=== PATIENT | male | born 1955 | race Caucasian/White ===

== ENCOUNTER 2022-12-08 17:48 | Inpatient (IN) | payer MEDICARE, OTHER ==
[~2022-12-08] VITALS: Ht 177.8 cm; Wt 157.4 kg
[2022-12-08 18:32] LABS: BASOPHILS # (AUTO) 0.1 K/uL (0.0-0.2); EOSINOPHILS # (AUTO) 0.2 K/uL (0.0-0.7); EOSINOPHILS % (AUTO) 2.7 % (0.0-6.0); HEMATOCRIT 49 % (39-51); LYMPHOCYTES # (AUTO) 1.5 K/uL (0.8-4.8); LYMPHOCYTES % (AUTO) 21.7 % (20.0-44.0); MEAN CORPUSCULAR HEMOGLOBIN 30 PG (26.0-33.0); MEAN CORPUSCULAR HGB CONC 33 g/dl (31.0-36.0); MEAN CORPUSCULAR VOLUME 90 fL (80-96); MONOCYTES # (AUTO) 0.7 K/uL (0.1-1.30); MONOCYTES % (AUTO) 10.1 % (2.0-12.0); NEUTROPHILS # (AUTO) 4.6 K/uL (1.8-8.9); NEUTROPHILS % (AUTO) 64.5 % (43.0-81.0); PLATELET COUNT (AUTO) 228 K/uL (150-450); RED BLOOD CELL COUNT(AUTO) 5.38 MIL/uL (4.5-6.0); RED CELL DISTRIBUTION WIDTH 15.5 % (11.5-15.0); WHITE BLOOD COUNT (AUTO) 7.1 K/uL (4.3-11.0)
[2022-12-08 18:40] LABS: CALCIUM, SERUM 8.5 mg/dL (8.5-10.1); CARBON DIOXIDE 27 mmol/L (21-32); CHLORIDE 106 mmol/L (98-107); CREATININE 0.9 mg/dL (0.6-1.3); GLUCOSE 108 mg/dL (74-106); POTASSIUM 4.1 mmol/L (3.5-5.1); SODIUM SERUM 140 mmol/L (136-145); UREA NITROGEN, BLOOD 13 mg/dL (7-18)
[2022-12-08 18:46] LABS: ACETAMINOPHEN < 10 ug/ml (10-30); ALANINE AMINOTRANSFERASE 19 U/L (12-78); ALBUMIN 2.8 g/dL (3.4-5.0); ALCOHOL, BLOOD < 3 mg/dL (0-10); ALKALINE PHOSPHATASE 91 U/L (46-116); ASPARTATE AMINOTRANSFERASE 12 U/L (15-37); BILIRUBIN,DIRECT 0.1 mg/dL (0.0-0.2); BILIRUBIN,TOTAL 0.5 mg/dL (0.2-1.0); TOTAL PROTEIN, SERUM 5.9 g/dL (6.4-8.2)
[2022-12-08 19:12] LABS: SALICYLATE 0.8 mg/dL (2.8-20.0)
[2022-12-08] MEDS ORDERED: ACETAMINOPHEN ES 500 MG TABLET ONE (19:38)
[2022-12-08 19:39] LABS: APPEARANCE,URINE CLOUDY (CLEAR); BILIRUBIN,URINE NEGATIVE (NEGATIVE); BLOOD, URINE TRACE-INTA Ery/uL (NEGATIVE); COLOR,URINE YELLOW (YELLOW); KETONES,URINE NEGATIVE (NEGATIVE); LEUKOCYTE ESTERASE ,URINE 2+ (NEGATIVE); NITRITE, URINE POSITIVE (NEGATIVE); PH,URINE 5.5 (5.0-8.0); PROTEIN,URINE TRACE mg/dl (NEGATIVE); UGLUCOSE NEGATIVE (NEGATIVE); UROBILINOGEN,URINE 0.2 EU/dL (0.2)
[2022-12-08 19:52] LABS: ADD URINE CULTURE YES; BACTERIA,URINE 4+ /HPF (None Seen); RBC,URINE 0-2 /HPF (0-2); WBC,URINE 51-80 /HPF (0-3)
[2022-12-08 19:53] LABS: SQUAMOUS EPITHELIAL CELL,UR 0-2 /HPF (None Seen)
[2022-12-08 19:54] LABS: MUCUS,URINE Few /LPF (None Seen)
[2022-12-08 20:00] LABS: AMPHETAMINE, URINE NEGATIVE (NEGATIVE); BARBITURATE, URINE NEGATIVE (NEGATIVE); BENZODIAZEPINE, URINE NEGATIVE (NEGATIVE); CANNABINOID, URINE NEGATIVE (NEGATIVE); COCCAINE, URINE NEGATIVE (NEGATIVE); OPIATE, URINE NEGATIVE (NEGATIVE); PHENCYCLIDINE SCREEN,URINE NEGATIVE (NEGATIVE)
[2022-12-08] MEDS ORDERED: ACETAMINOPHEN ES 500 MG TABLET PO ONE (20:00)
[2022-12-08] MEDS ORDERED: CEPHALEXIN MONOHYDRATE 500 MG CAPSULE PO ONE ×2 (20:26→20:30)
[2022-12-08] MEDS ORDERED: APIX5TAB PO (20:46)
[2022-12-08] MEDS ORDERED: CHOL100062 PO (20:46)
[2022-12-08] MEDS ORDERED: QUET25TA PO (20:46)
[2022-12-08] MEDS ORDERED: OXYC-128 PO (20:46)
[2022-12-08] MEDS ORDERED: ATOR40TA PO (20:46)
[2022-12-08] MEDS ORDERED: METO100T7 PO (20:46)
[2022-12-08] MEDS ORDERED: FURO-144 PO (20:46)
[2022-12-08] MEDS ORDERED: ACET-868 PO (20:46)
[2022-12-08] MEDS ORDERED: SERT25TA PO (20:46)
[2022-12-08] MEDS ORDERED: POTA20TA83 PO (20:46)
[2022-12-08] MEDS ORDERED: DIVA500T2 PO (20:46)
[2022-12-09] MEDS ORDERED: LORAZEPAM INJ 2 MG/ML VIAL IM ONE (01:30)
[2022-12-09] MEDS ORDERED: LORAZEPAM INJ 2 MG/ML VIAL ONE (01:36)
[2022-12-09] MEDS ORDERED: AMIN30LI66 PO (08:10)
[2022-12-09] MEDS ORDERED: MAGN400O6 PO (08:10)
[2022-12-09] MEDS ORDERED: BISA10SU11 RC (08:10)
[2022-12-09] MEDS ORDERED: NA P133E RC (08:10)
[2022-12-09] MEDS ORDERED: DOCU-141 PO (08:10)
[2022-12-09] MEDS ORDERED: ACETAMINOPHEN 325 MG TABLET PO PRN (15:30)
[2022-12-09] MEDS ORDERED: TEMAZEPAM 7.5 MG CAPSULE PO PRN (15:30)
[2022-12-09] MEDS ORDERED: MAGNESIUM HYDROXIDE 30 ML UDC PO PRN (15:30)
[2022-12-09] MEDS ORDERED: BLOOD SUGAR DIAGNOSTIC 1 EACH STRIP IN ONE (15:30)
[2022-12-09] MEDS ORDERED: MAG HYDROX/AL HYDROX/SIMETH 30 ML UDC PO PRN (15:30)
[2022-12-09 16:00] VITALS: BP 141/77; TEMP 97.6; O2SAT 97
[2022-12-09] MEDS ORDERED: LORAZEPAM 1 MG TABLET PO PRN (16:00)
[2022-12-09] MEDS: CHOLECALCIFEROL 1,000 UNIT TABLET (VIT D3) PO SCH (17:35)
[2022-12-09 20:00] VITALS: BP 138/71; TEMP 97.4; O2SAT 98
[2022-12-09] MEDS ORDERED: DIVALPROEX SODIUM 500 MG TABLET.DR PO SCH (21:00)
[2022-12-09] MEDS ORDERED: QUETIAPINE FUMARATE 25 MG TABLET PO SCH (21:00)
[2022-12-09] MEDS: ATORVASTATIN 40 MG TABLET PO SCH (21:31)
[2022-12-09] MEDS: SULFAMETH/TRIMETH 800/160 MG 1 UDTAB TABLET PO SCH (21:32)
[2022-12-09] MEDS: APIXABAN 5 MG TABLET PO SCH (21:35)
[2022-12-10 08:00] VITALS: BP 137/76; TEMP 98; O2SAT 100
[2022-12-10 08:05] LABS: ALBUMIN 2.6 g/dL (3.4-5.0); BILIRUBIN,TOTAL 0.5 mg/dL (0.2-1.0); CALCIUM, SERUM 8.6 mg/dL (8.5-10.1); CREATININE 0.8 mg/dL (0.6-1.3); POTASSIUM 3.8 mmol/L (3.5-5.1); TOTAL PROTEIN, SERUM 5.5 g/dL (6.4-8.2)
[2022-12-10] MEDS: SULFAMETH/TRIMETH 800/160 MG 1 UDTAB TABLET PO SCH ×2 (08:24→21:36)
[2022-12-10] MEDS: METOPROLOL SUCCINATE 50 MG TAB.SR.24H PO SCH (08:24)
[2022-12-10] MEDS: APIXABAN 5 MG TABLET PO SCH ×2 (08:24→21:43)
[2022-12-10] MEDS: FUROSEMIDE 40 MG TABLET PO SCH (08:24)
[2022-12-10] MEDS ORDERED: SERTRALINE HCL 25 MG TABLET PO SCH (09:00)
[2022-12-10 10:06] LABS: CHOLESTEROL 142 mg/dL (<200); HDL CHOLESTEROL 26 mg/dL (40-60); LDL 94 mg/dL (0-99); TRIGLYCERIDES 154 mg/dL (30-150)
[2022-12-10] MEDS ORDERED: IPRATROPIUM NEB FS 0.5 MG/2.5 ML AMPUL.NEB NEB PRN (13:30)
[2022-12-10] MEDS ORDERED: ALBUTEROL FS 2.5 MG/0.5 ML VIAL.NEB NEB SCH (13:30)
[2022-12-10] MEDS ORDERED: ALBUTEROL FS 2.5 MG/0.5 ML VIAL.NEB NEB PRN (14:30)
[2022-12-10] MEDS ORDERED: OLANZAPINE 10 MG VIAL IM ONE (15:30)
[2022-12-10] MEDS: CHOLECALCIFEROL 1,000 UNIT TABLET (VIT D3) PO SCH (17:50)
[2022-12-10 21:01] VITALS: BP 114/76; TEMP 98.1; O2SAT 96
[2022-12-10] MEDS: ATORVASTATIN 40 MG TABLET PO SCH (21:36)
[2022-12-10] MEDS: QUETIAPINE FUMARATE 100 MG TABLET PO SCH (21:37)
[2022-12-10 21:48] LABS: CREATININE 1.2 mg/dL (0.6-1.3)
[2022-12-11 02:50] VITALS: O2SAT 97
[2022-12-11 03:00] VITALS: O2SAT 99
[2022-12-11 08:00] VITALS: BP 98/74; TEMP 98.8; O2SAT 96
[2022-12-11] MEDS: APIXABAN 5 MG TABLET PO SCH ×2 (09:29→21:46)
[2022-12-11] MEDS: FUROSEMIDE 40 MG TABLET PO SCH (09:29)
[2022-12-11] MEDS: SULFAMETH/TRIMETH 800/160 MG 1 UDTAB TABLET PO SCH ×2 (09:29→21:45)
[2022-12-11] MEDS: METOPROLOL SUCCINATE 50 MG TAB.SR.24H PO SCH (09:30)
[2022-12-11] MEDS: VENLAFAXINE XR 75 MG CAP.SR.24H PO SCH (09:36)
[2022-12-11 16:00] VITALS: BP 99/76; TEMP 98; O2SAT 96
[2022-12-11] MEDS: CHOLECALCIFEROL 1,000 UNIT TABLET (VIT D3) PO SCH (17:12)
[2022-12-11 20:22] VITALS: BP 96/78; TEMP 98.4; O2SAT 96
[2022-12-11] MEDS: ATORVASTATIN 40 MG TABLET PO SCH (21:46)
[2022-12-11] MEDS: QUETIAPINE FUMARATE 100 MG TABLET PO SCH (21:47)
[2022-12-12 08:00] VITALS: BP 116/77; TEMP 97.9; O2SAT 96
[2022-12-12] MEDS: SULFAMETH/TRIMETH 800/160 MG 1 UDTAB TABLET PO SCH ×2 (09:15→21:29)
[2022-12-12] MEDS: METOPROLOL SUCCINATE 50 MG TAB.SR.24H PO SCH (09:16)
[2022-12-12] MEDS: VENLAFAXINE XR 75 MG CAP.SR.24H PO SCH (09:17)
[2022-12-12] MEDS: APIXABAN 5 MG TABLET PO SCH ×2 (09:17→21:33)
[2022-12-12] MEDS: FUROSEMIDE 40 MG TABLET PO SCH (09:17)
[2022-12-12 16:00] VITALS: BP 101/63; TEMP 97.9; O2SAT 97
[2022-12-12] MEDS: CHOLECALCIFEROL 1,000 UNIT TABLET (VIT D3) PO SCH (17:01)
[2022-12-12 20:31] VITALS: BP 98/67; TEMP 97.8; O2SAT 98
[2022-12-12] MEDS: QUETIAPINE FUMARATE 100 MG TABLET PO SCH (21:29)
[2022-12-12] MEDS: ATORVASTATIN 40 MG TABLET PO SCH (21:29)
[2022-12-13 08:00] VITALS: BP 124/91; TEMP 97.9; O2SAT 97
[2022-12-13] MEDS: METOPROLOL SUCCINATE 50 MG TAB.SR.24H PO SCH (08:30)
[2022-12-13] MEDS: FUROSEMIDE 40 MG TABLET PO SCH (08:30)
[2022-12-13] MEDS: VENLAFAXINE XR 75 MG CAP.SR.24H PO SCH (08:30)
[2022-12-13] MEDS: SULFAMETH/TRIMETH 800/160 MG 1 UDTAB TABLET PO SCH (08:32)
[2022-12-13] MEDS: APIXABAN 5 MG TABLET PO SCH (08:34)
[2022-12-13 16:00] VITALS: BP 105/63; TEMP 98; O2SAT 97
[2022-12-13] MEDS: CHOLECALCIFEROL 1,000 UNIT TABLET (VIT D3) PO SCH (17:32)
[2022-12-13] MEDS ORDERED: QUET100T PO (18:14)
[2022-12-13] MEDS ORDERED: LORA-259 PO (18:14)
[2022-12-13] MEDS ORDERED: ALBU2.5V13 NEB (18:14)
[2022-12-13] MEDS ORDERED: MAG30ORA PO (18:14)
[2022-12-13] MEDS ORDERED: VENL37.55 PO (18:14)
[2022-12-13] MEDS ORDERED: MERO1VIA23 IV (18:14)
[2022-12-13] MEDS ORDERED: TEMA7.5C12 PO (18:14)
[2022-12-13] MEDS ORDERED: MEROPENEM 1 G in IV NS 0.9% 100 ML IV SCH (21:00)
== END 2022-12-13 18:10 | disposition short-term general hospital (02) | DRG 885 ==
LOC: ER 17:50 → GPS 12-09 14:45
PROVIDERS: ADMIT Psychiatry & Neurology Psychosomatic Medicine; ATTEND Internal Medicine
DX: F33.3 Major depressive disorder, recurrent, severe with psychotic symptoms (principal); E44.0 Moderate protein-calorie malnutrition; N39.0 Urinary tract infection, site not specified; Z68.42 Body mass index [BMI] 45.0-49.9, adult; Z59.01 Sheltered homelessness; Z66 Do not resuscitate; E78.5 Hyperlipidemia, unspecified; I48.91 Unspecified atrial fibrillation; Z79.01 Long term (current) use of anticoagulants; Z79.899 Other long term (current) drug therapy; E66.01 Morbid (severe) obesity due to excess calories; R62.7 Adult failure to thrive; J44.9 Chronic obstructive pulmonary disease, unspecified; I11.9 Hypertensive heart disease without heart failure; E88.09 Other disorders of plasma-protein metabolism, not elsewhere classified
CPT/HCPCS: 36415; 71045-TC; 72170-TC; 80048-TC; 80053-TC; 80061-TC; 80076-TC; 81001; 82565-TC; 85025-TC; 87081-TC; 87086-TC; 94799-TC; 97110-TC; 97112-TC; 97116-TC; 97530-TC; A4223; G0480; J2060; J3490

== ENCOUNTER 2022-12-13 18:00 | Inpatient (IN) | payer MEDICARE, OTHER ==
[~2022-12-13] VITALS: Ht 177.8 cm; Wt 156.0 kg
[~2022-12-13 18:00] MED LIST: ACET-868 PO; AMIN30LI66 PO; APIX5TAB PO; ATOR40TA PO; BISA10SU11 RC; CHOL100062 PO; DIVA500T2 PO; DOCU-141 PO; FURO-144 PO; MAGN400O6 PO; METO100T7 PO; NA P133E RC; OXYC-128 PO; POTA20TA83 PO; QUET25TA PO; SERT25TA PO
[2022-12-13] MEDS ORDERED: MERO1VIA23 IV (18:14)
[2022-12-13] MEDS ORDERED: TEMA7.5C12 PO (18:14)
[2022-12-13] MEDS ORDERED: MAG30ORA PO (18:14)
[2022-12-13] MEDS ORDERED: LORA-259 PO (18:14)
[2022-12-13] MEDS ORDERED: VENL37.55 PO (18:14)
[2022-12-13] MEDS ORDERED: QUET100T PO (18:14)
[2022-12-13] MEDS ORDERED: ALBU2.5V13 NEB (18:14)
[2022-12-13 18:54] VITALS: BP 97/60; TEMP 98.3; O2SAT 94
[2022-12-13] MEDS ORDERED: MAGNESIUM HYDROXIDE 30 ML UDC PO PRN ×2 (20:30)
[2022-12-13] MEDS ORDERED: MAG HYDROX/AL HYDROX/SIMETH 30 ML UDC PO PRN ×2 (20:30)
[2022-12-13] MEDS ORDERED: ONDANSETRON HCL/PF 4 MG/2 ML VIAL IVP PRN (20:30)
[2022-12-13] MEDS ORDERED: ZOLPIDEM TARTRATE 5 MG TABLET PO PRN (20:30)
[2022-12-13] MEDS ORDERED: LORAZEPAM 1 MG TABLET PO PRN (20:30)
[2022-12-13] MEDS ORDERED: Z GUARD REMEDY 4 OZ OINT TP PRN (20:30)
[2022-12-13] MEDS ORDERED: ALBUTEROL FS 2.5 MG/0.5 ML VIAL.NEB NEB PRN (20:30)
[2022-12-13] MEDS ORDERED: ACETAMINOPHEN 325 MG TABLET PO PRN ×2 (20:30)
[2022-12-13] MEDS ORDERED: TEMAZEPAM 7.5 MG CAPSULE PO PRN (20:30)
[2022-12-13] MEDS: IV NS 0.9% 1,000 ML IV PRN (20:46)
[2022-12-13 20:57] VITALS: BP 109/66; TEMP 98.1; O2SAT 95
[2022-12-13] MEDS ORDERED: MEROPENEM 1 G VIAL IV SCH (21:00)
[2022-12-13] MEDS: MEROPENEM 1 G in IV NS 0.9% 100 ML IV SCH (21:50)
[2022-12-13] MEDS: APIXABAN 5 MG TABLET PO SCH (21:56)
[2022-12-13] MEDS: QUETIAPINE FUMARATE 100 MG TABLET PO SCH (21:56)
[2022-12-13] MEDS: ATORVASTATIN 40 MG TABLET PO SCH (21:56)
[2022-12-14] MEDS: MEROPENEM 1 G in IV NS 0.9% 100 ML IV SCH ×3 (05:33→21:41)
[2022-12-14 05:48] LABS: BASOPHILS # (AUTO) 0.1 K/uL (0.0-0.2); BASOPHILS % (AUTO) 1.4 % (0.0-2.0); EOSINOPHILS # (AUTO) 0.2 K/uL (0.0-0.7); EOSINOPHILS % (AUTO) 2.5 % (0.0-6.0); HEMATOCRIT 48 % (39-51); HEMOGLOBIN 16.2 g/dL (13.5-17.5); LYMPHOCYTES # (AUTO) 1.5 K/uL (0.8-4.8); LYMPHOCYTES % (AUTO) 21.1 % (20.0-44.0); MEAN CORPUSCULAR HEMOGLOBIN 31 PG (26.0-33.0); MEAN CORPUSCULAR HGB CONC 34 g/dl (31.0-36.0); MEAN CORPUSCULAR VOLUME 90 fL (80-96); MONOCYTES # (AUTO) 0.7 K/uL (0.1-1.30); MONOCYTES % (AUTO) 10.4 % (2.0-12.0); NEUTROPHILS # (AUTO) 4.6 K/uL (1.8-8.9); NEUTROPHILS % (AUTO) 64.6 % (43.0-81.0); PLATELET COUNT (AUTO) 216 K/uL (150-450); RED BLOOD CELL COUNT(AUTO) 5.33 MIL/uL (4.5-6.0); WHITE BLOOD COUNT (AUTO) 7.2 K/uL (4.3-11.0)
[2022-12-14 06:03] LABS: CALCIUM, SERUM 8.6 mg/dL (8.5-10.1); CREATININE 1.1 mg/dL (0.6-1.3); MAGNESIUM 2.2 mg/dL (1.8-2.4); PHOSPHORUS 3.5 mg/dL (2.5-4.9); POTASSIUM 3.9 mmol/L (3.5-5.1)
[2022-12-14 07:00] VITALS: BP 112/74; TEMP 98.1; O2SAT 95
[2022-12-14] MEDS: VENLAFAXINE XR 37.5 MG CAP.SR.24H PO SCH (08:42)
[2022-12-14] MEDS: METOPROLOL SUCCINATE 50 MG TAB.SR.24H PO SCH (08:43)
[2022-12-14] MEDS: APIXABAN 5 MG TABLET PO SCH ×2 (08:44→21:47)
[2022-12-14] MEDS: IV NS 0.9% 1,000 ML IV PRN (15:46)
[2022-12-14 16:00] VITALS: BP 106/63; TEMP 98.4; O2SAT 99
[2022-12-14] MEDS: CHOLECALCIFEROL 1,000 UNIT TABLET (VIT D3) PO SCH (17:06)
[2022-12-14 20:00] VITALS: BP 102/70; TEMP 98.2; O2SAT 93
[2022-12-14] MEDS: ATORVASTATIN 40 MG TABLET PO SCH (21:47)
[2022-12-14] MEDS: QUETIAPINE FUMARATE 100 MG TABLET PO SCH (21:47)
[2022-12-15] MEDS: MEROPENEM 1 G in IV NS 0.9% 100 ML IV SCH ×3 (05:30→20:49)
[2022-12-15] MEDS: VENLAFAXINE XR 37.5 MG CAP.SR.24H PO SCH (08:13)
[2022-12-15] MEDS: METOPROLOL SUCCINATE 50 MG TAB.SR.24H PO SCH (08:14)
[2022-12-15] MEDS: APIXABAN 5 MG TABLET PO SCH ×2 (08:14→20:51)
[2022-12-15 08:20] VITALS: BP 97/75; TEMP 97.4; O2SAT 95
[2022-12-15] MEDS: IV NS 0.9% 1,000 ML IV PRN (15:36)
[2022-12-15 16:28] VITALS: BP 104/67; TEMP 97.2; O2SAT 99
[2022-12-15] MEDS: CHOLECALCIFEROL 1,000 UNIT TABLET (VIT D3) PO SCH (17:16)
[2022-12-15 20:00] VITALS: BP 112/68; TEMP 98.8; O2SAT 94
[2022-12-15] MEDS: QUETIAPINE FUMARATE 100 MG TABLET PO SCH (21:34)
[2022-12-15] MEDS: ATORVASTATIN 40 MG TABLET PO SCH (21:34)
[2022-12-16] MEDS: MEROPENEM 1 G in IV NS 0.9% 100 ML IV SCH (05:07)
[2022-12-16] MEDS: METOPROLOL SUCCINATE 50 MG TAB.SR.24H PO SCH (08:12)
[2022-12-16] MEDS: VENLAFAXINE XR 37.5 MG CAP.SR.24H PO SCH (08:13)
[2022-12-16] MEDS: APIXABAN 5 MG TABLET PO SCH (08:13)
[2022-12-16 08:16] VITALS: BP 106/78; TEMP 98.1; O2SAT 97
== END 2022-12-16 10:20 | DRG 689 ==
LOC: MED 18:00
PROVIDERS: ADMIT Nurse Practitioner Acute Care
DX: N39.0 Urinary tract infection, site not specified (principal); G93.41 Metabolic encephalopathy; E44.0 Moderate protein-calorie malnutrition; I48.20 Chronic atrial fibrillation, unspecified; Z16.12 Extended spectrum beta lactamase (ESBL) resistance; F32.3 Major depressive disorder, single episode, severe with psychotic features; E78.5 Hyperlipidemia, unspecified; E88.09 Other disorders of plasma-protein metabolism, not elsewhere classified; I10 Essential (primary) hypertension; R62.7 Adult failure to thrive; Z79.01 Long term (current) use of anticoagulants; Z79.899 Other long term (current) drug therapy; Z73.6 Limitation of activities due to disability; F39 Unspecified mood [affective] disorder; B96.1 Klebsiella pneumoniae [K. pneumoniae] as the cause of diseases classified elsewhere
CPT/HCPCS: 36415; 80048-TC; 83735-TC; 84100-TC; 85025-TC; A4223; G0378; J2185; J7030